=== PATIENT | female | born 1965 | race Caucasian/White ===

== ENCOUNTER 2019-03-16 10:15 | Outpatient (CLI) | payer BC ==
[~2019-03-16] VITALS: Ht 165.1 cm; Wt 80.5 kg
[2019-03-16] MEDS ORDERED: NIAC500T24 PO (10:30)
[2019-03-16] MEDS ORDERED: SIMV10TA3 PO (10:30)
[2019-03-16] MEDS ORDERED: METO100T6 PO (10:30)
[2019-03-16] MEDS ORDERED: RT-ALBUINH IH (10:30)
[2019-03-16] MEDS ORDERED: PARO20TA5 PO (10:30)
[2019-03-21] MEDS ORDERED: DOCU-143 PO (14:07)
== END 2019-03-16 10:32 | disposition home or self-care (01) ==
LOC: PREOP 10:15
PROVIDERS: ATTEND Surgery
DX: Z01.818 Encounter for other preprocedural examination (principal)

== ENCOUNTER 2019-03-21 12:13 | Day surgery (SDC) | payer BC ==
[2019-03-21] VITALS (7 sets, daily range): BP systolic 128–161; BP diastolic 65–82
[~2019-03-21 12:13] MED LIST: METO100T6 PO; NIAC500T24 PO; PARO20TA5 PO; RT-ALBUINH IH; SIMV10TA3 PO
[2019-03-21] MEDS ORDERED: LACTATED RINGERS 1,000 ML IV ONE (12:19)
[2019-03-21] MEDS ORDERED: LACTATED RINGERS 1,000 ML IV STA (12:29)
[2019-03-21] MEDS ORDERED: PROPOFOL INJECTION 50 ML IV ONE (12:45)
--- NOTE | 2019-03-21 13:13 | Progress Note-Pre Operative ---
Pre-Operative Progress Note H&P Reviewed The H&P was reviewed, patient examined and no changes noted. Date Seen by Provider: Mar 21, 2019 Time Seen by Provider: 13:13 Date H&P Reviewed: Mar 21, 2019 Time H&P Reviewed: 13:13 Pre-Operative Diagnosis: blood per rectum BEULAH YOST DO Mar 21, 2019 13:13
[2019-03-21] MEDS ORDERED: MIDAZOLAM 2 MG/2 ML (VERSED) VIAL ONE (13:14)
--- NOTE | 2019-03-21 13:37 | Anesthesia-General Post-Op ---
MAC Patient Condition Mental Status/LOC: Same as Preop Cardiovascular: Satisfactory Nausea/Vomiting: Absent Respiratory: Satisfactory Pain: Controlled Complications: Absent Post Op Complications Complications None Follow Up Care/Instructions Patient Instructions None needed. Anesthesiology Discharge Order Discharge Order Patient is doing well, no complaints, stable vital signs, no apparent adverse anesthesia problems. No complications reported per nursing. JACQUE JUAN CRNA Mar 21, 2019 13:37
--- NOTE | 2019-03-21 14:02 | Progress Note-Post Operative ---
Post-Operative Progess Note Surgeon (s)/Toucher Up (s) Surgeon BEULHA YOST DO Toucher Up: na Pre-Operative Diagnosis blood per rectum Post-Operative Diagnosis posterior anal fissure Procedure & Operative Findings Date of Procedure 03/21/19 Procedure Performed/Findings colonoscopy Anesthesia Type per performance instructor Estimated Blood Loss Estimated blood loss (mL): none Specimens/Packing Specimens Removed none BEULAH YOST DO Mar 21, 2019 14:02
[2019-03-21] MEDS ORDERED: DOCU-143 PO (14:07)
--- NOTE | 2019-03-21 14:10 | Discharge Inst-Simple/Standard ---
Discharge Inst-Standard Discharge Medications New, Converted or Re-Newed RX: Other (colace over the counter (stool softener)) Patient Instructions/Follow Up Plan of Care/Instructions/FU: 2 weeks Vaibhav Activity as Tolerated: Yes Discharge Diet: Regular Diet (high fiber) BEULAH YOST DO Mar 21, 2019 14:10
--- NOTE | 2019-03-21 20:24 | OPERATIVE REPORT ---
DATE OF SERVICE: 03/21/2019 PREOPERATIVE DIAGNOSIS: Blood per rectum. POSTOPERATIVE DIAGNOSIS: Posterior anal fissure. PROCEDURE: Colonoscopy. SURGEON: Beulah Esposito DO ANESTHESIA: Per SALES MARKETING MANAGER. ESTIMATED BLOOD LOSS: None. COMPLICATIONS: None. INDICATIONS: The patient is a 54-year-old female with bright red blood per rectum. She understands risks and benefits of procedure and wished to proceed with procedure. Consent was signed in the chart. DESCRIPTION OF PROCEDURE: The patient was taken to the endoscopy suite, placed in left lateral recumbent position. Timeout was performed. Digital rectal exam was performed. Posterior anal fissure was noted. No palpable polyps, masses or ulcerations. Scope was inserted in the rectum, advanced all the way to the cecum with minimal difficulty. Prep was adequate. Scope was then slowly retracted back. No polyps, masses or ulcerations of the cecum, ascending, transverse, descending and sigmoid colon. Once in the rectum, scope was retroflexed noting no other pathology. Scope was returned to its normal position, slowly withdrawn until completely removed. The patient tolerated the procedure well without any complications. She was taken to recovery room in stable condition. RECOMMENDATIONS: The patient will be started on Colace 100 mg twice a day and high fiber diet recommended. Keep stools soft and we will reexamine in two weeks. If no improvement, we will get diltiazem cream. The patient will need repeat colonoscopy in 10 years unless family history of colon cancer, which will then be five years. If any issues before that, would reexamine and consider repeating colonoscopy. Job ID: [id number] DocumentID: [id number] Dictated Date: 03/21/2019 14:13:08 Building Architect Date: 03/21/2019 20:23:42 Dictated By: BEULAH ESPOSITO DO
== END 2019-03-21 14:45 | disposition home or self-care (01) ==
LOC: ENDO 12:13
PROVIDERS: ATTEND Surgery
DX: K60.2 Anal fissure, unspecified (principal); I10 Essential (primary) hypertension; E78.5 Hyperlipidemia, unspecified; J45.909 Unspecified asthma, uncomplicated; Z88.0 Allergy status to penicillin; Z79.899 Other long term (current) drug therapy; Z83.3 Family history of diabetes mellitus; Z82.49 Family history of ischemic heart disease and other diseases of the circulatory system; Z80.6 Family history of leukemia; Z90.49 Acquired absence of other specified parts of digestive tract